=== PATIENT | female | born 1970 | race Asian ===

== ENCOUNTER 2024-08-22 22:36 | Emergency (ER) | payer MEDICAID, OTHER ==
[~2024-08-22] VITALS: Ht 170.2 cm; Wt 63.5 kg
[2024-08-23] MEDS: KETOROLAC TROMETHAMINE 15 MG/ML VIAL IV ONE (02:00)
[2024-08-23] MEDS: IV NS 0.9% 1,000 ML BAG IV ONE (02:01)
[2024-08-23 02:10] LABS: BASOPHILS % (AUTO) 0.3 % (0.0-2.0); EOSINOPHILS % (AUTO) 0.2 % (0.0-6.0); HEMATOCRIT 40 % (33-45); HEMOGLOBIN 13.7 g/dL (11.5-14.8); LYMPHOCYTES # (AUTO) 0.4 K/uL (0.8-4.8); LYMPHOCYTES % (AUTO) 4.1 % (20.0-44.0); MEAN CORPUSCULAR HEMOGLOBIN 32 PG (26.0-33.0); MEAN CORPUSCULAR HGB CONC 34 g/dl (31.0-36.0); MEAN CORPUSCULAR VOLUME 95 fL (82-100); MONOCYTES # (AUTO) 0.5 K/uL (0.1-1.30); MONOCYTES % (AUTO) 5.4 % (2.0-12.0); NEUTROPHILS # (AUTO) 8.2 K/uL (1.8-8.9); PLATELET COUNT (AUTO) 270 K/uL (150-450); RED BLOOD CELL COUNT(AUTO) 4.24 MIL/uL (4.0-5.2); RED CELL DISTRIBUTION WIDTH 13.6 % (11.5-15.0); WHITE BLOOD COUNT (AUTO) 9.2 K/uL (4.3-11.0)
[2024-08-23 02:34] LABS: CREATININE 0.7 mg/dL (0.6-1.3); POTASSIUM 3.3 mmol/L (3.5-5.1)
[2024-08-23 02:34] LABS: APPEARANCE,URINE CLEAR (CLEAR); BILIRUBIN,URINE NEGATIVE (NEGATIVE); BLOOD, URINE TRACE-INTA Ery/uL (NEGATIVE); COLOR,URINE YELLOW (YELLOW); KETONES,URINE NEGATIVE (NEGATIVE); LEUKOCYTE ESTERASE ,URINE 1+ (NEGATIVE); NITRITE, URINE POSITIVE (NEGATIVE); PROTEIN,URINE TRACE mg/dl (NEGATIVE); UGLUCOSE NEGATIVE (NEGATIVE); UROBILINOGEN,URINE 0.2 EU/dL (0.2)
[2024-08-23 02:37] LABS: PREGNANCY TEST URINE QUAL NEGATIVE (NEGATIVE)
[2024-08-23 02:40] LABS: BILIRUBIN,DIRECT 0.1 mg/dL (0.0-0.2); BILIRUBIN,TOTAL 0.7 mg/dL (0.2-1.0); TOTAL PROTEIN, SERUM 7.7 g/dL (6.4-8.2)
[2024-08-23 02:57] LABS: SQUAMOUS EPITHELIAL CELL,UR 0-2 /HPF (None Seen); TRIPLE PHOSPHATE CRYSTAL,UR Moderate /HPF (None Seen)
[2024-08-23 02:58] LABS: ADD URINE CULTURE YES; RBC,URINE 0-2 /HPF (0-2); WBC,URINE 0-2 /HPF (0-3)
[2024-08-23 02:59] LABS: BACTERIA,URINE Many /HPF (None Seen)
[2024-08-23] MEDS ORDERED: CIPR-262 PO (03:26)
[2024-08-23] MEDS ORDERED: TAMS-12 PO (03:26)
[2024-08-23] MEDS ORDERED: CIPROFLOXACIN HCL 500 MG TABLET ONE (03:33)
[2024-08-23] MEDS ORDERED: TAMSULOSIN 0.4 MG CAP.SR.24H ONE (03:33)
[2024-08-23] MEDS: CIPROFLOXACIN HCL 500 MG TABLET PO ONE (03:42)
[2024-08-23] MEDS: TAMSULOSIN 0.4 MG CAP.SR.24H PO ONE (03:42)
[2024-08-23 03:49] VITALS: BP 132/87; TEMP 99; O2SAT 99
== END 2024-08-23 03:50 | disposition home or self-care (01) ==
LOC: ER 23:00
DX: N20.0 Calculus of kidney (principal)
CPT/HCPCS: 99284; 74176; 96360; 85025; 80048; 87086; 83690; 80076; 84703; 81001; 36415; J7030